=== PATIENT | female | born 1955 | race Asian ===

== ENCOUNTER 2023-02-10 17:01 | Emergency (ER) | payer MEDICAID, OTHER, SELFPAY ==
--- NOTE | ~2023-02-10 | XR_ITS ---
EXAMINATION: XR CHEST CLINICAL INFORMATION: Question right lower lobe pneumonia COMPARISON: None available. TECHNIQUE: Frontal view of the chest was obtained. FINDINGS: Lung volumes are symmetric. There is suggestion of subtle patchy opacity at the lateral left lung base. No evidence of pneumothorax, pleural effusion, or pulmonary edema. Cardiac size is within normal limits. Calcification is present at the aortic arch. No acute osseous findings are seen. XR/XR chest 1V IMPRESSION: Suggestion of subtle patchy left basilar opacity, which could reflect developing consolidation in the proper clinical setting.
--- NOTE | ~2023-02-10 | CT_ITS ---
EXAMINATION: CT ABDOMEN AND PELVIS WITHOUT CONTRAST CLINICAL INFORMATION: Right-sided pain, question etiology COMPARISON: None available. TECHNIQUE: Multidetector volumetric imaging was performed from the superior aspect of the liver through the pubic symphysis. Sagittal and coronal reformatted images were obtained on the technologist's workstation. This CT examination was performed using dose optimization techniques as appropriate, variously including the following: *Automated exposure control *Adjustment of mA and/or kV according to patient size (this includes techniques or standardized protocols for targeted exams where dose is matched to indication/reason for exam; i.e. extremities or head) *Use of iterative reconstruction technique DLP: 274 mGy-cm FINDINGS: LUNG BASES: Limited assessment due to respiratory motion artifact. There are suspected tree-in-bud type opacities predominantly in the left lower lobe, favoring an infectious/inflammatory etiology. LIVER, GALLBLADDER, AND BILIARY TREE: The liver is normal in size, shape, and attenuation. No focal hepatic lesion or biliary ductal dilatation is identified on this noncontrast exam. Gallbladder is grossly unremarkable. PANCREAS: Unremarkable. SPLEEN: Unremarkable. ADRENAL GLANDS: Unremarkable. KIDNEYS AND URETERS: The kidneys are normal in size, shape, and attenuation. No hydronephrosis, hydroureter, or calculi seen. No perinephric stranding. BLADDER: Unremarkable. GASTROINTESTINAL TRACT: No evidence of bowel obstruction or significant wall thickening. The appendix is unremarkable. No free fluid or free air is seen. ABDOMINAL WALL: No significant hernia is appreciated. LYMPH NODES: Normal. VASCULAR: Scattered atherosclerotic calcifications. PELVIC VISCERA: Unremarkable. OSSEOUS STRUCTURES: Chronic-appearing changes of the anterior aspect of the L5 vertebral body including spurring. CT/CT abdomen pelvis wo IV con IMPRESSION: 1. No acute findings identified in the abdomen/pelvis. 2. Suspected tree-in-bud type opacities predominantly in the left lower lobe, favoring an infectious/inflammatory etiology.
[2023-02-10 17:06] VITALS: BP 157/84; PULSE 82; RESP 16; TEMP 36.8; O2SAT 99; BMI 20.4
[2023-02-10 17:23] LABS: MANUAL DIFF FLAG NO
[2023-02-10 17:25] LABS: Basophils Percent Auto 0.5 % (0-2); Eosinophils Absolute Auto 0.1 X10*3/uL (0.0-0.4); Eosinophils Percent Auto 1.1 % (0-4); Hematocrit 40.6 % (37.0-47.0); Hemoglobin 13.5 g/dl (12.0-16.0); Imm Gran Abs Auto 0.01 X10*3/uL (0.00-0.03); Imm Gran Pct Auto 0.2 % (0.0-0.4); Lymphocytes Absolute Auto 2.4 X10*3/uL (1.2-4.9); Lymphocytes Percent Auto 35.9 % (20-40); Mean Corpuscular HGB Conc 33.3 g/dl (31.0-35.0); Mean Corpuscular Hemoglobin 29.6 pg (27.0-33.0); Mean Platelet Volume 9.8 fL (9.4-12.3); Monocytes Absolute Auto 0.5 X10*3/uL (0.1-1.2); Monocytes Percent Auto 7.7 % (2-11); Neutrophils Absolute Auto 3.6 x10*3/uL (2.0-8.3); Neutrophils Percent Auto 54.6 % (45-73); Platelet Count 238 X10*3/uL (160-400); Red Blood Count 4.56 X10*6/uL (4.20-5.50); White Blood Count 6.6 X10*3/uL (4.8-10.8)
[2023-02-10 17:36] VITALS: BP 153/77; PULSE 70; RESP 17; TEMP 36.7; O2SAT 99
[2023-02-10 17:49] LABS: COVID-19 Test Negative (Negative); IDNOW Serial# 08D9AD1C; IDNOW Serial# BCCEAD1C; Influenza A Negative (Negative); Influenza B2 Negative (Negative)
[2023-02-10 17:54] LABS: Alanine Aminotransferase 15 U/L (0-31); Albumin Level 4.3 g/dL (3.5-5.0); Alkaline Phosphatase 99 U/L (39-117); Anion Gap 12 (12-20); Aspartate Amino Transferase 28 U/L (5-31); Bilirubin Total 0.5 mg/dL (0.0-1.0); Blood Urea Nitrogen 8 mg/dL (9-16); Calcium 9.7 mg/dL (8.4-10.2); Carbon Dioxide 28 mmol/L (22-29); Chloride 104 mmol/L (96-108); Creatinine Clr Calc Pharmacy 53.9; Estimated Glomerular Filt Rate > 60; Glucose Random 95 mg/dL (60-115); Potassium 3.7 mmol/L (3.3-5.1); Sodium 140 mmol/L (135-145); Total Protein 8.1 g/dL (6.5-8.0)
[2023-02-10 18:01] LABS: Appearance Urine Clear; Color Urine Yellow; Glucose Urine UA Negative (Negative); Leukocyte Esterase Urine Negative (Negative); Nitrite Urine Negative (Negative); PH 7.5 (5.0-9.0); Urine Blood Negative (Negative); Urine Ketones Negative (Negative); Urine Protein Negative (Neg-Trace)
--- NOTE | 2023-02-10 18:26 | PC.NURSE ---
pt zambian speaking. AOx3, reporting bloating and chills x1 week. reports URQ abd pain. awaiting CR scan.
--- NOTE | 2023-02-10 18:49 | ED.GENADULT ---
HPI - General Adult General Chief complaint: General Medical Stated complaint: feels chilly, stomach flu Time Seen by Provider: 02/10/23 17:29 Source: patient and family Mode of arrival: ambulatory Limitations: language barrier History of Present Illness HPI narrative: Patient taiwanese speaking per family having chills for last 1 week and pain in the right side of abdomen no nausea no vomiting no diarrhea no fever patient been eating okay otherwise Related Data Allergies Allergy/AdvReac Type Severity Reaction Status Date / Time No Known Allergies Allergy Verified 02/10/23 17:05 Review of Systems Review of Systems: Yes all other systems are reviewed and are negative [facility] Social History Social History Alcohol intake: never Smoked in Last 30 Days: No Use of substances other than those prescribed or required for medical reasons: No Advance Directives: No Advance Directives Information Provided: No Physical Exam ED Vital Signs: Vital Signs - 24 hr 02/10/23 17:06 02/10/23 17:36 02/10/23 19:48 Temperature 98.2 F 98.0 F 97.8 F Pulse Rate 82 70 69 Respiratory Rate 16 17 16 Blood Pressure 157/84 H 153/77 H 142/76 H Pulse Oximetry 99 99 98 Oxygen Delivery Method Room Air Room Air Room Air 02/10/23 21:56 Temperature 97.8 F Pulse Rate 77 Respiratory Rate 16 Blood Pressure 116/65 Pulse Oximetry 97 Oxygen Delivery Method Room Air BMI result Body Mass Index 20.4 Appearance: Alert. Oriented X3. No acute distress. Eyes: PERRLA, No Nystagmus ENT: Pharynx normal. Oral Mucosa moist Neck: Normal inspection. Neck supple. CVS: Normal heart rate and rhythm. Pulses normal. Respiratory: No respiratory distress. Equal air entry bilateral, no wheezing/rales/rhonchi Abdomen: Soft mild tenderness right upper quadrant no rebound tenderness or guarding Bowel sounds are present, no mass palpable, no CVA tenderness Skin: Skin warm and dry. Normal skin color. Normal skin turgor. Extremities: No lower extremity edema. No calf tenderness Neuro: Oriented X 3. No motor deficit. Medical Decision Making Medical Decision Making MDM Narrative: Patient nonspecific chills and nonspecific right abdominal pain CT scan is negative chest x-ray negative labs are stable discharge patient home on nonspecific abdominal pain patient denies cough or shortness of breath no signs symptoms of pneumonia likely atelectasis in the x-ray and CT scan finding Lab Data MDM Lab Attestation statement: I reviewed the patient's lab results. 02/10/23 17:15 02/10/23 17:15 Labs: Lab Results 02/10/23 02/10/23 02/10/23 Range/Units 17:15 17:15 17:15 WBC 6.6 (4.8-10.8) X10*3/uL RBC 4.56 (4.20-5.50) X10*6/uL Hgb 13.5 (12.0-16.0) g/dl Hct 40.6 (37.0-47.0) % MCV 89.0 (80.0-98.0) fL MCH 29.6 (27.0-33.0) pg MCHC 33.3 (31.0-35.0) g/dl RDW 12.0 (11.0-16.0) % Plt Count 238 (160-400) X10*3/uL MPV 9.8 (9.4-12.3) fL Immature Gran % (Auto) 0.2 (0.0-0.4) % Neut % (Auto) 54.6 (45-73) % Lymph % (Auto) 35.9 (20-40) % [place] % (Auto) 7.7 (2-11) % Eos % (Auto) 1.1 (0-4) % Baso % (Auto) 0.5 (0-2) % Lymph # (Auto) 2.4 (1.2-4.9) X10*3/uL [place] # (Auto) 0.5 (0.1-1.2) X10*3/uL Eos # (Auto) 0.1 (0.0-0.4) X10*3/uL Baso # (Auto) 0.0 (0.0-0.2) X10*3/uL Abs Immat Gran (auto) 0.01 (0.00-0.03) X10*3/uL Absolute Neuts (auto) 3.6 (2.0-8.3) x10*3/uL Absolute Nucleated RBC 0.000 (0.0-0.012) X10*3/uL Nucleated RBC % (auto) 0.0 (0.0-0.2) /100WBC Sodium (135-145) mmol/L Potassium (3.3-5.1) mmol/L Chloride (96-108) mmol/L Carbon Dioxide (22-29) mmol/L Anion Gap (12-20) BUN (9-16) mg/dL Creatinine (0.5-1.4) mg/dL Estim Creat Clear Calc Estimated GFR Random Glucose (60-115) mg/dL Calcium (8.4-10.2) mg/dL Total Bilirubin (0.0-1.0) mg/dL AST (5-31) U/L ALT (0-31) U/L Alkaline Phosphatase (39-117) U/L Total Protein (6.5-8.0) g/dL Albumin (3.5-5.0) g/dL Urine Color Urine Appearance Urine pH (5.0-9.0) Ur Specific [place] (1.005-1.025) Urine Protein (Neg-Trace) mg/dL Urine Glucose (UA) (Negative) mg/dL Urine Ketones (Negative) mg/dL Urine Blood (Negative) Urine Nitrite (Negative) Ur Leukocyte Esterase (Negative) COVID-19 (LUANA) Negative (Negative) COVID-19 Clin Com See Note Influenza Type A (DANIKA) Negative (Negative) Influenza Type B (DANIKA) Negative (Negative) Influenza A & B Note See Note 02/10/23 02/10/23 Range/Units 17:15 17:48 WBC (4.8-10.8) X10*3/uL RBC (4.20-5.50) X10*6/uL Hgb (12.0-16.0) g/dl Hct (37.0-47.0) % MCV (80.0-98.0) fL MCH (27.0-33.0) pg MCHC (31.0-35.0) g/dl RDW (11.0-16.0) % Plt Count (160-400) X10*3/uL MPV (9.4-12.3) fL Immature Gran % (Auto) (0.0-0.4) % Neut % (Auto) (45-73) % Lymph % (Auto) (20-40) % [place] % (Auto) (2-11) % Eos % (Auto) (0-4) % Baso % (Auto) (0-2) % Lymph # (Auto) (1.2-4.9) X10*3/uL [place] # (Auto) (0.1-1.2) X10*3/uL Eos # (Auto) (0.0-0.4) X10*3/uL Baso # (Auto) (0.0-0.2) X10*3/uL Abs Immat Gran (auto) (0.00-0.03) X10*3/uL Absolute Neuts (auto) (2.0-8.3) x10*3/uL Absolute Nucleated RBC (0.0-0.012) X10*3/uL Nucleated RBC % (auto) (0.0-0.2) /100WBC Sodium 140 (135-145) mmol/L Potassium 3.7 (3.3-5.1) mmol/L Chloride 104 (96-108) mmol/L Carbon Dioxide 28 (22-29) mmol/L Anion Gap 12 (12-20) BUN 8 L (9-16) mg/dL Creatinine 0.69 (0.5-1.4) mg/dL Estim Creat Clear Calc 53.9 Estimated GFR > 60 Random Glucose 95 (60-115) mg/dL Calcium 9.7 (8.4-10.2) mg/dL Total Bilirubin 0.5 (0.0-1.0) mg/dL AST 28 (5-31) U/L ALT 15 (0-31) U/L Alkaline Phosphatase 99 (39-117) U/L Total Protein 8.1 H (6.5-8.0) g/dL Albumin 4.3 (3.5-5.0) g/dL Urine Color Yellow Urine Appearance Clear Urine pH 7.5 (5.0-9.0) Ur Specific [place] 1.010 (1.005-1.025) Urine Protein Negative (Neg-Trace) mg/dL Urine Glucose (UA) Negative (Negative) mg/dL Urine Ketones Negative (Negative) mg/dL Urine Blood Negative (Negative) Urine Nitrite Negative (Negative) Ur Leukocyte Esterase Negative (Negative) COVID-19 (LUANA) (Negative) COVID-19 Clin Com Influenza Type A (DANIKA) (Negative) Influenza Type B (DANIKA) (Negative) Influenza A & B Note Discharge Plan Discharge Clinical Impression: Abdominal pain Patient Disposition: Home, Self-Care Instructions: Abdominal Pain (ED) Additional Instructions: Drink plenty of fluids Cause of your abdominal pain is not very clear Follow-up with PCP for further evaluate Interventions: ED Discharge Assessment Last Done: 02/10/23 22:40 Discharge Date/Time: 02/10/23 22:40
[2023-02-10 19:48] VITALS: BP 142/76; PULSE 69; RESP 16; TEMP 36.6; O2SAT 98
[2023-02-10 21:56] VITALS: BP 116/65; PULSE 77; RESP 16; TEMP 36.6; O2SAT 97
== END 2023-02-10 22:40 | disposition home or self-care (01) ==
PROVIDERS: Emergency Provider Internal Medicine
DX: R10.31 Right lower quadrant pain (principal); R06.02 Shortness of breath; Z20.822 Contact with and (suspected) exposure to COVID-19; Z20.828 Contact with and (suspected) exposure to other viral communicable diseases; Z79.899 Other long term (current) drug therapy
CPT/HCPCS: 36415; 71045; 74176; 80053; 81003; 85025; 87502; 87635; 99284

== ENCOUNTER 2023-10-11 09:52 | Outpatient (AMB) | payer MEDICAID, SELFPAY ==
--- NOTE | 2023-10-11 09:57 | A.OFFPC_ITS ---
Vital Signs 10/11/23 10:00 Height 4 ft 11 in Weight 98 lb 8 oz BMI 19.9 BP 100/64 Blood Pressure Location Lt brachial Position Sitting Pulse 66 Pulse Source Pulse Oximeter Pulse Oximetry (%) 100 Oxygen Delivery Method Room Air Intake Visit Reasons: Buttoner Request PE Intake Note: Patient is a new patient here to establish care for Back pain, Stomach pain on the right side, Constipation. Transferring care from unknown. Medical records have not been requested and have not received. Environmental Programs Specialist Required: Yes Environmental Programs Specialist Language: Cymro Environmental Programs Specialist Name: Donald Baugh (Brother cassandra) Information Interpreted: non-clinical & clinical Supervisor Propellant Charge Loading: Present Accompanied by: Family/Other Allergies No Known Allergies Allergy (Verified 10/11/23 10:43) Medication List - Last Reconciled 10/11/23 by Coleman Ornelas MD No Known Home Meds Tobacco use date assessed: 10/11/23 Fall risk assessment: 1 Fall in past year Last assessed Fall Risk: 10/11/23 Dental Screening Dental Screen Date: 10/11/23 Did you have a dental visit in the last 12 months?: No Did you have a dental problem in the last 6 months where you did not have access to dental care?: No Was dental information given to patient?: No (denture) HPI Buttoner Request PE HPI Details Patient comes in today for her annual physical examination and to establish care - is a new patient to the practice Patient reportedly just came over/m[place] [facility] here to [facility] last year in November 2022 and has not seen any doctors [place] in the [place] so far Relates that she's had problems with stomach pain for years (thinks that she may have acid problems ) and was taking an unrecalled medication for her stomach while she was still living in [facility] but has not had any Rx to take since she moved here last year Also reports that she's had issues with constipation often in the past Patient has also been experiencing increased pain over her neck and her entire back area for a few years now but states that she has never had these checked out before and feels that her neck pain and back pain have gradually gotten worse over the years Her daughter has recently noticed that her lumbar vertebrae seems to be sticking out more than normal lately States that she otherwise has not had any significant medical issues and has never had any surgeries done in the past She denies any headaches or dizziness Denies any chest pains, no SOB No nausea/vomiting and she denies any acute urinary symptoms She is also unaware that she's had any form of cancer screenings done in the past, including colonoscopy, mammogram or pap smears [facility] Medical History (Updated 10/11/23 @ 12:49 by Coleman Ornelas MD) Gastritis Surgical History No pertinent past surgical history Social History Housing: House Alcohol intake: never Patient Tobacco Use Status: Never used Tobacco e-Cigarette/Vaping Use: Never Used Second Hand Smoke Exposure: No service: No Current occupational status: retired Cognitive needs: No Hearing needs: No Vision needs: No Questionnaire PHQ-9 Over the last 2 weeks, how often have you been bothered by any of the following problems? 1. Little interest or pleasure in doing things: not at all 2. Feeling down, depressed, or hopeless: not at all 3. Trouble falling or staying asleep, or sleeping too much: not at all 4. Feeling tired or having little energy: not at all 5. Poor appetite or overeating: not at all 6. Feeling bad about yourself - or that you are a failure or have let yourself or your family down: not at all 7. Trouble concentrating on things, such as reading the newspaper or watching television: not at all 8. Moving or speaking so slowly that other people could have noticed. Or the opposite - being so fidgety or restless that you have been moving around a lot more than usual: not at all 9. Thoughts that you would be better off or of hurting yourself in some way: not at all Total score: 0 Depression Screening Interpretation: Negative Depression Screening Done: Yes 43247 - PHQ-9 Billing: Yes Source: Developed by Drs. Thom Collado, Verónica Gaitan, Dat Pham and colleagues, with an educational brian from [employer]. Thrive Questionnaire Date Thrive assessed: 10/11/23 I am a: Patient What is your living situation today?: I have a steady place to live Within the past 12 months, did the food you bought not last and you didn't have the money to get more?: Never true Within the past 12 months, did you worry whether your food would run out before you got money to buy more?: Never true Do you have trouble paying for medicines?: No Do you have trouble getting transportation to medical appointments?: No Do you have trouble paying your heating and electricity bill?: No Do you have trouble taking care of your child, family member or friend?: No Do you have trouble with day-to-day activities such as bathing, preparing meals, shopping, managing finances, etc.?: No Are you currently unemployed and looking for a job?: No Are you interested in more education?: No Currently or been in a relationship where the following occur: no concerns reported THRIVE Score: 0 AUDIT C Alcohol Use Questionnaire (AUDIT-C) 1. How often do you have a drink containing alcohol?: Never Total Score: 0 Score Reviewed/Action Taken: Yes SUNNY-7 AMB Questionnaire SUNNY-7 Date SUNNY - 7 assessed: 10/11/23 Feeling nervous, anxious, or on edge: 0 = Not at all Not being able to stop or control worryin = Not at all Worrying too much about different things: 0 = Not at all Trouble relaxin = Not at all Being so restless that it is hard to sit still: 0 = Not at all Becoming easily annoyed or irritable: 0 = Not at all Feeling afraid as if something awful might happen: 0 = Not at all Total SUNNY-7 score (0-4 normal; 5-9 mild; 10-14 moderate; 15-21 severe): 0 Source: Developed by Drs. Thom Collado, Verónica Gaitan, Dat Pham and colleagues, with an educational brian from [employer]. Review of Systems Const Denies chills, Denies difficulty sleeping, Denies fatigue, Denies fever(s), Denies headache(s) and Denies malaise Eyes Denies blurry vision, Denies change in vision, Denies irritation and Denies itchy eyes ENT Denies dysphagia, Denies dizziness, Denies otalgia, Denies headache(s), Denies nasal congestion, Reports neck pain, Denies odynophagia, Denies sinus pain and Denies sore throat Card Denies chest pain, Denies rapid heart rate, Denies irregular heart rhythm, Denies palpitations and Denies dyspnea Resp Denies chest congestion, Denies cough, Denies dyspnea and Denies wheezing GI Reports abdominal pain (recurrent, mostly over the epigastric area), Denies bloating, Reports constipation, Denies dysphagia, Denies heartburn, Denies diarrhea, Denies nausea, Denies odynophagia and Denies vomiting Denies hematuria, Denies urinary frequency, Denies dysuria, Denies urinary incontinence and Denies urinary urgency Musc Reports back pain (over the entire back), Denies arthralgias, Denies joint swelling, Denies muscle weakness and Reports neck pain Skin/Breast Denies breast pain, Denies breast mass, Denies change in pigmentation, Denies lesions, Denies rash and Denies unusual bruising Neuro Denies dizziness, Denies headache(s) and Denies paresthesias Psych Denies anxiety and Denies depression Endo Denies fatigue and Denies palpitations Dirk/Lymph Denies easy bruising Aller/Immun Denies itchy eyes and Denies wheezing Physical exam (Primary Care) Vital Signs: Last Vital Signs Pulse 66 10/11/23 10:00 BP 100/64 10/11/23 10:00 Pulse Ox 100 10/11/23 10:00 Oxygen Delivery Method Room Air 10/11/23 10:00 BMI result Body Mass Index 19.9 Tobacco/Smoking Status: Tobacco use Status Tobacco use date assessed 10/11/23 10/11/23 10:13 Patient Tobacco Use Status Never used Tobacco 10/11/23 10:13 e-Cigarette/Vaping Use Never Used 10/11/23 10:13 PHQ-9: PHQ-9 Score PHQ-9: Total score 0 10/11/23 10:13 Depression Screening Interpretation: Negative Thrive Assessment: Date of Thrive Assessment Date Thrive assessed 10/11/23 10/11/23 10:13 Currently or been in a relationship where the following occur: no concerns reported Const General: no acute distress, alert and awake Orientation/consciousness: patient oriented x3 HENMT Head: Yes normocephalic and Yes atraumatic Ears: external ears normal, TM's normal bilaterally and EAC's normal General nose exam: No nasal discharge present Face and sinus: Yes normal facial exam and Yes sinuses nontender Teeth and gingiva: dentition normal Throat: Yes posterior oropharynx normal and Yes tonsils normal (no TP congestion) Eyes Eyelids: Yes eyelids normal Conjunctivae: conjunctivae normal Pupils: Equal, round and reactive pupils present EOM: EOMs intact bilaterally Neck Neck: Yes no lymphadenopathy and Yes supple Thyroid: Thyroid normal Resp Auscultation: clear to auscultation bilaterally, no rales and no wheezes Cardio Rate: regular rate Rhythm: regular rhythm Heart sounds: no murmurs GI Palpation (GI): Soft to palpation, Tenderness to palpation present (GI) (mild) in the epigastrum; with no rebound tenderness, no guarding, not rigid and No hepatosplenomegaly present Auscultation: normal bowel sounds General: Yes no CVA tenderness Back/Spine/Pelvis Back: no CVA tenderness Cervical Spine: Cervical spine tenderness Thoracic/Lumbar Spine: thoracic spinal tenderness and lumbar spinal tenderness Skin Lesions: no lesions Rashes: no rashes Neuro General: patient oriented x3, moves all extremities, no focal motor deficits and CN's II-XI intact bilaterally Cranial nerves: Yes Equal, round and reactive pupils present Cognition (Neuro): normal cognition Gait exam (Neuro): Normal gait present Extrem General: Yes no clubbing, cyanosis or edema Assessment and Plan Assessment & Plan (1) Annual physical exam: Code(s): Z00.00 - Encounter for general adult medical examination without abnormal findings Plan: Check labs Patient is unaware that she's had any cancer screenings done in the past when she was still [place] [facility] - just relocated here to [facility] last year in November 2022 as her daughter resides here with her and had her mother come over so she can be cared for by family at home Will refer her for a screening mammogram as well as initial BMD for osteoporosis screening (2) Gastritis: Code(s): K29.70 - Gastritis, unspecified, without bleeding Qualifiers: Gastritis type: unspecified gastritis Chronicity: chronic Gastritis bleeding: without bleeding Qualified Code(s): K29.50 - Unspecified chronic gastritis without bleeding Plan: Discussed dietary restrictions Will send her for an upper GI series for further evaluation Will start her for now on Omeprazole 20 mg QD and Famotidine 20 mg Q HS x 14 days Will refer her as well to GI for further evaluation and management as patient may require EGD if her symptoms do not improve with Tx and depending on how her upper GI series comes out (3) Neck pain: Code(s): M54.2 - Cervicalgia Plan: Will send patient for cervical spine x-rays for further evaluation (4) Thoracic back pain: Code(s): M54.6 - Pain in thoracic spine Qualifiers: Chronicity: unspecified Back pain laterality: midline Qualified Code(s): M54.6 - Pain in thoracic spine Plan: Will send patient for x-rays of the thoracic spine for further evaluation (5) Low back pain: Code(s): M54.50 - Low back pain, unspecified Qualifiers: Chronicity: chronic Back pain laterality: midline Sciatica presence: without sciatica Qualified Code(s): M54.50 - Low back pain, unspecified; G89.29 - Other chronic pain Plan: Discussed activity and weight-lifting restrictions to avoid aggravating her back pain Will send patient as well for lumbar spine x-rays for further evaluation (6) Colon cancer screening: Code(s): Z12.11 - Encounter for screening for malignant neoplasm of colon Plan: Will refer her to GI for screening colonoscopy - patient apparently has never had one done in the past (7) Osteoporosis screening: Code(s): Z13.820 - Encounter for screening for osteoporosis Plan: Will send her for BMD for osteoporosis screening - this will be likely her index screen Plan Follow up in 3 months Orders: Orders FL upper GI series Today R10.13 - Epigastric pain MM tomosynthesis screening BI Today Z12.31 - Encounter for screening mammogram for malignant neoplasm of breast XR cervical spine 3V Today M54.2 - Cervicalgia XR lumbar spine 2-3V Today M54.50 - Low back pain, unspecified TSH reflex Free T4 Today E78.00 - Pure hypercholesterolemia, unspecified, Z00.00 - Encounter for general adult medical examination without abnormal findings XR DEXA axial skeleton Today Z13.820 - Encounter for screening for osteoporosis, Z78.0 - Asymptomatic menopausal state XR thoracic spine 3V Today M54.6 - Pain in thoracic spine Complete Blood Count Auto Diff Today K29.70 - Gastritis, unspecified, without bleeding, Z00.00 - Encounter for general adult medical examination without abnormal findings Comprehensive [place]. Panel Fast Today K29.70 - Gastritis, unspecified, without bleeding, Z00.00 - Encounter for general adult medical examination without abnormal findings Lipid Panel Today E78.00 - Pure hypercholesterolemia, unspecified, Z00.00 - Encounter for general adult medical examination without abnormal findings UA CC w/rflx Micro + Cult Today R30.0 - Dysuria, Z00.00 - Encounter for general adult medical examination without abnormal findings Vitamin D 25-OH Total Today E55.9 - Vitamin D deficiency, unspecified, Z00.00 - Encounter for general adult medical examination without abnormal findings Vitamin B12 and Folate Today E53.8 - Deficiency of other specified B group vitamins, Z00.00 - Encounter for general adult medical examination without abnormal findings C Reactive Protein Today M54.2 - Cervicalgia, M54.50 - Low back pain, unspecified Erythrocyte Sedimentation Rate Today M54.2 - Cervicalgia, M54.50 - Low back pain, unspecified, M79.7 - Fibromyalgia Referrals Gastroenterology Referral K29.70 - Gastritis, unspecified, without bleeding, R10.9 - Unspecified abdominal pain, Z12.11 - Encounter for screening for malignant neoplasm of colon Medications: New omeprazole 20 mg PO DAILY 90 days 90 caps 1RF famotidine 20 mg PO BEDTIME 14 days 14 tabs 0RF Coding Level of Care Code New Pt Prev Care >65yr (12894) Diagnoses Annual physical exam Z00.00 Chronic gastritis without bleeding, unspecified gastritis type K29.50 Gastritis type: unspecified gastritis Chronicity: chronic Gastritis bleeding: without bleeding Neck pain M54.2 Midline thoracic back pain, unspecified chronicity M54.6 Chronicity: unspecified Back pain laterality: midline Chronic midline low back pain without sciatica M54.50; G89.29 Chronicity: chronic Back pain laterality: midline Sciatica presence: without sciatica Colon cancer screening Z12.11 Osteoporosis screening Z13.820
[2023-10-11 10:00] VITALS: BP 100/64; PULSE 66; O2SAT 100; BMI 19.9
== END 2023-10-11 11:02 | disposition home or self-care (01) ==
PROVIDERS: PCP Internal Medicine; Visit Provider Internal Medicine
DX: Z00.00 Encounter for general adult medical examination without abnormal findings (principal); K29.50 Unspecified chronic gastritis without bleeding; M54.2 Cervicalgia; M54.6 Pain in thoracic spine; M54.50 Low back pain, unspecified; G89.29 Other chronic pain; Z12.11 Encounter for screening for malignant neoplasm of colon; Z13.820 Encounter for screening for osteoporosis
CPT/HCPCS: 99387

== ENCOUNTER 2023-10-12 08:25 | Outpatient (REF) | payer MEDICAID, OTHER, SELFPAY ==
--- NOTE | ~2023-10-12 | XR_ITS ---
EXAMINATION: XR CERVICAL SPINE CLINICAL INFORMATION: Cervicalgia COMPARISON: None available. TECHNIQUE: 3 views of the cervical spine were obtained. FINDINGS: The tip of the odontoid is obscured on the open-mouth view. The bones are diffusely demineralized. No fracture or subluxation. Prevertebral soft tissues are within normal limits. No disc space narrowing. Mild cervical lordosis. XR/XR cervical spine 3V IMPRESSION: 1. The bones are diffusely demineralized. 2. No acute bony abnormality.
--- NOTE | ~2023-10-12 | XR_ITS ---
EXAMINATION: XR THORACIC SPINE CLINICAL INFORMATION: Pain in thoracic spine COMPARISON: None available. TECHNIQUE: 3 views of the thoracic spine were obtained. FINDINGS: The bones are diffusely demineralized. There is no fracture or bone destruction seen. There is curve of the thoracic spine, convex left. There is no disc space narrowing. There is no abnormality of the paraspinal soft tissues. XR/XR thoracic spine 3V IMPRESSION: Curvature of the thoracic spine, convex left.
--- NOTE | ~2023-10-12 | XR_ITS ---
EXAMINATION: XR LUMBOSACRAL SPINE CLINICAL INFORMATION: Low back pain, unspecified COMPARISON: None available. TECHNIQUE: Three standing views of the lumbosacral spine. FINDINGS: The bones are diffusely demineralized. Round back posture is noted with straightening of the normal lumbar lordosis. There are 5 nonrib-bearing lumbar-type vertebral bodies There is mild loss of height of the L5 vertebral body. No disc space narrowing is appreciated. There is mild retrolisthesis of L4 with respect to L5. Question of fusion of the L5 facet to the sacrum. XR/XR lumbar spine 2-3V IMPRESSION: 1. Mild loss of height of the L5 vertebral body. 2. Mild retrolisthesis of L4 with respect to L5. 3. Question of fusion of the L5 facet to the sacrum.
[2023-10-12 08:52] LABS: MANUAL DIFF FLAG NO
[2023-10-12 09:05] LABS: Basophils Percent Auto 0.8 % (0-2); Eosinophils Absolute Auto 0.2 X10*3/uL (0.0-0.4); Eosinophils Percent Auto 4.1 % (0-4); Hematocrit 38.9 % (37.0-47.0); Hemoglobin 12.8 g/dl (12.0-16.0); Imm Gran Abs Auto 0.01 X10*3/uL (0.00-0.03); Imm Gran Pct Auto 0.2 % (0.0-0.4); Lymphocytes Absolute Auto 2.4 X10*3/uL (1.2-4.9); Lymphocytes Percent Auto 48.5 % (20-40); Mean Corpuscular HGB Conc 32.9 g/dl (31.0-35.0); Mean Corpuscular Hemoglobin 29.4 pg (27.0-33.0); Mean Corpuscular Volume 89.4 fL (80.0-98.0); Mean Platelet Volume 10.4 fL (9.4-12.3); Monocytes Absolute Auto 0.4 X10*3/uL (0.1-1.2); Monocytes Percent Auto 8.7 % (2-11); Neutrophils Absolute Auto 1.8 x10*3/uL (2.0-8.3); Neutrophils Percent Auto 37.7 % (45-73); Platelet Count 254 X10*3/uL (160-400); Red Blood Count 4.35 X10*6/uL (4.20-5.50); Red Cell Distribution Width 11.7 % (11.0-16.0); White Blood Count 4.9 X10*3/uL (4.8-10.8)
[2023-10-12 09:39] LABS: Erythrocyte Sedimentation Rate 74 MM/HR (0-20)
[2023-10-12 09:42] LABS: Alanine Aminotransferase 14 U/L (0-31); Albumin Level 4.2 g/dL (3.5-5.0); Alkaline Phosphatase 113 U/L (39-117); Anion Gap 11 (12-20); Aspartate Amino Transferase 27 U/L (5-31); Bilirubin Total 0.3 mg/dL (0.0-1.0); Blood Urea Nitrogen 14 mg/dL (9-16); C Reactive Protein 0.36 mg/dL (< or = 0.50); Calcium 9.7 mg/dL (8.4-10.2); Carbon Dioxide 26 mmol/L (22-29); Chloride 107 mmol/L (96-108); Cholesterol 201 mg/dL (<200); Estimated Glomerular Filt Rate > 60; Glucose Fasting 93 mg/dL (60-99); HDL Cholesterol 44 mg/dL (>40); LDL Cholesterol Calculated 141 mg/dL (<100); Potassium 4.1 mmol/L (3.3-5.1); Sodium 140 mmol/L (135-145); Total Protein 8.7 g/dL (6.5-8.0); Triglycerides 81 mg/dL (<150)
[2023-10-12 10:02] LABS: TSH reflex Free T4 2.02 uIU/mL (0.32-4.0); Vitamin D 25-OH Total 42.4 ng/mL (>30)
[2023-10-12 10:07] LABS: Folate 4.4 ng/mL (> or = 4.0); Vitamin B12 1479 pg/mL (200-900)
[2023-10-12 10:21] LABS: Appearance Urine Clear; Color Urine Yellow; Glucose Urine UA Negative (Negative); Leukocyte Esterase Urine Small (1+) (Negative); Nitrite Urine Negative (Negative); UMIC TRIGGER UACC YES; Urine Blood Negative (Negative); Urine Ketones Negative (Negative); Urine Protein Negative (Neg-Trace)
[2023-10-12 10:24] LABS: Bacteria Urine 1+ (None Seen); RBC Urine 0-2 /HPF (0-2); Squamous Epithelial Cell Urine 0-2 /HPF (0-2); UACC Culture Trigger YES
== END 2023-10-12 08:26 | disposition home or self-care (01) ==
LOC: HO.LAB 08:25
PROVIDERS: PCP Internal Medicine; Visit Provider Internal Medicine
DX: M54.50 Low back pain, unspecified (principal); M54.2 Cervicalgia; M54.6 Pain in thoracic spine; K29.70 Gastritis, unspecified, without bleeding; Z00.00 Encounter for general adult medical examination without abnormal findings; M79.7 Fibromyalgia; E78.00 Pure hypercholesterolemia, unspecified; R30.0 Dysuria; E53.8 Deficiency of other specified B group vitamins; E55.9 Vitamin D deficiency, unspecified
CPT/HCPCS: 36415; 72040; 72072; 72100; 80053; 80061; 81001; 82306; 82607; 82746; 84443; 85025; 85652; 86140; 87086

== ENCOUNTER 2023-11-15 13:31 | Outpatient (REF) | payer MEDICAID, OTHER, SELFPAY ==
--- NOTE | ~2023-11-15 | MM_ITS ---
EXAMINATION: MM SCREENING DIGITAL BREAST TOMOSYNTHESIS, BILATERAL CLINICAL INFORMATION: Screening. Asymptomatic. COMPARISON: Mammography: This is a baseline mammogram. TECHNIQUE: Digital breast tomosynthesis is performed in both the craniocaudal and mediolateral oblique views along with computer-aided detection (CAD). Synthesized 2D images are generated from the tomosynthesis. FINDINGS: There are scattered areas of fibroglandular density (ACR BI-RADS breast composition Category b). There are no significant masses, abnormal calcifications, or other abnormalities. MM/MM tomosynthesis screening BI IMPRESSION: No mammographic evidence of malignancy. ASSESSMENT: BI-RADS BI-RADS 1 - Negative RECOMMENDATION: Routine annual mammography screening. 1 year F/U This examination should not preclude the clinical evaluation of a suspicious palpable abnormality. This patient's information was entered into a reminder system with a target due date for their next mammogram.
--- NOTE | ~2023-11-15 | MM_ITS ---
EXAMINATION: BONE DENSITOMETRY CLINICAL INDICATION: Menopause. COMPARISON: This is the patient's baseline examination. TECHNIQUE: Using a [employer]ktoPRO DXA System (software version: 13.1) manufactured by [employer], dual-energy x-ray absorptiometry was performed of the lumbar spine and left hip. The images are of good technical quality. Summary results are attached. FINDINGS: LEFT FEMUR, NECK: BMD 0.508 g/cm2, Z-score -1.9, T-score -3.8, osteoporosis. LEFT FEMUR, TOTAL: BMD 0.513 g/cm2, Z-score -2.2, T-score -3.9, osteoporosis. AP SPINE L1-L4: BMD 0.580 g/cm2, Z-score -2.8, T-score -5.0, osteoporosis. IDENTIFIED RISK FACTORS: Early menopause, history of fracture (adult), secondary osteoporosis. HISTORY OF FRACTURE: Wrist. MEDICATIONS: Calcium, vitamin D. MM/XR DEXA axial skeleton IMPRESSION: 1. DIAGNOSIS: Severe osteoporosis based on the lowest T-score value of -5.0 in the lumbar spine and history of fracture of wrist applying World Health Organization criteria. 2. 10-YEAR FRACTURE RISK PREDICTION, FRAX: According to the guidelines, FRAX calculation should only be performed on patients in the osteopenia bone density category. Therefore, FRAX was not performed on this patient. 3. Treatment Recommendations: NOF guidelines recommend consideration for treatment in postmenopausal women and men age 50 and older presenting with the following: -A hip or vertebral (clinical or morphometric) fracture. -T-score less than or equal to -2.5 at the femoral neck or spine after appropriate evaluation to exclude secondary causes. -Low bone mass at the hip or spine and a 10-year fracture probability by FRAX of greater than or equal to 3% for hip fracture or greater than or equal to 20% for major osteoporotic fracture based on the [place] adapted WHO algorithm. 4. Other Recommendations: All treatment decisions require clinical judgment and consideration of individual patient factors, including patient preferences, comorbidities, previous drug use, risk factors not captured in the FRAX model (e.g. frailty, falls, vitamin D deficiency, increased bone turnover, interval significant decline in bone density) and possible under or overestimation of fracture risk by FRAX. Additional medical evaluation for secondary cause of low bone mineral density may be appropriate. FUTURE SCAN RECOMMENDATION: People with diagnosed cases of osteoporosis or at high risk for fracture should have regular bone mineral density tests. For patients eligible for Medicare, routine testing is allowed once every 2 years. The testing frequency can be increased to one year for patients who have rapidly progressing disease, those who are receiving or discontinuing medical therapy to restore bone mass, or have additional risk factors.
== END 2023-11-15 13:32 | disposition home or self-care (01) ==
LOC: HO.MAMMO 13:31
PROVIDERS: PCP Internal Medicine; Visit Provider Internal Medicine
DX: Z12.31 Encounter for screening mammogram for malignant neoplasm of breast (principal); Z13.820 Encounter for screening for osteoporosis; Z78.0 Asymptomatic menopausal state
CPT/HCPCS: 77063; 77067; 77080

== ENCOUNTER → 2023-11-15 14:00 | Outpatient (BNV) | payer MEDICAID, SELFPAY | PROVIDERS: PCP Internal Medicine; Visit Provider Radiology Diagnostic Radiology | DX: Z12.31 Encounter for screening mammogram for malignant neoplasm of breast (principal) | CPT/HCPCS: 77063; 77067 ==

== ENCOUNTER 2023-12-10 08:32 | Outpatient (REF) | payer MEDICAID, SELFPAY ==
--- NOTE | ~2023-12-10 | FL_ITS ---
EXAMINATION: XR FLUOROSCOPY UPPER GI WITH AIR CLINICAL INFORMATION: Dysphagia. Epigastric pain. Reflux. COMPARISON: None TECHNIQUE: Fluoroscopic air contrast upper GI examination was performed utilizing standard techniques with thin and thick barium and effervescent granules. Numerous spot images were obtained. FINDINGS: Lateral cine images of the oropharynx and hypopharynx demonstrate normal swallow mechanism with normal epiglottic inversion and soft palate elevation. No tracheal penetration, glottic or subglottic aspiration identified. No nasopharyngeal reflux present. Hypopharyngeal structures appear normal without evidence of mass or diverticulum. There was no significant cricopharyngeal achalasia. Dual and single contrast images of the esophagus demonstrate normal caliber and contour. No evidence of stricture or mass. There is a granular appearance to the esophageal mucosa, findings suggesting erosive esophagitis. There is to and fro motion of the barium column with nonpropulsive tertiary contractions noted in the mid and distal esophagus. No evidence of hiatus hernia identified. No significant gastroesophageal reflux was seen during the course of the examination and on reflux views. Dual contrast and single contrast images of the stomach demonstrated a normal contour. The gastric mucosal folds are thickened. There are multiple areas of contrast pooling in the fundus, body, and antrum of the stomach that may represent small superficial apthous ulcers. No masses are seen. Contrast freely passed into the gastric antrum and duodenal bulb without delay. Single and air-contrast images of the duodenal bulb demonstrate no abnormality. The duodenal sweep has a normal appearance, course, and mucosal fold appearance. The imaged proximal jejunum has a normal fold pattern and caliber. FLUOROSCOPY TIME: 5 minutes 27 seconds Number of Spot Images: 21 Number of Cine: 10 DOSE AREA PRODUCT: 1338 uGy-m2 (microgray-meter squared) FL/FL upper GI w air IMPRESSION: 1. Esophageal dysmotility. Possible erosive esophagitis. 2. Thickened gastric mucosal folds in addition to multiple areas of contrast pooling in the fundus, body, and antrum of the stomach. These findings are suggestive of erosive gastritis. Recommend correlation with EGD. This procedure was performed by Jeramy Chow PA-C, and supervised by Dr. Shaw
== END 2023-12-10 08:33 | disposition home or self-care (01) ==
LOC: HO.XRAY 08:32
PROVIDERS: PCP Internal Medicine; Visit Provider Internal Medicine
DX: R10.13 Epigastric pain (principal)
CPT/HCPCS: 74246

== ENCOUNTER → 2023-12-10 08:34 | Outpatient (BNV) | payer MEDICAID, SELFPAY | PROVIDERS: PCP Internal Medicine; Visit Provider Physician Assistant Surgical | DX: R13.10 Dysphagia, unspecified (principal); R10.13 Epigastric pain; K21.9 Gastro-esophageal reflux disease without esophagitis | CPT/HCPCS: 74246 ==

== ENCOUNTER 2024-01-13 12:17 | Outpatient (AMB) | payer MEDICAID, SELFPAY ==
--- NOTE | 2024-01-13 12:35 | A.OFFPC_ITS ---
Vital Signs 01/13/24 12:37 Height 4 ft 11 in Weight 101 lb 6 oz BMI 20.5 BP 110/70 Blood Pressure Location Lt brachial Position Sitting Pulse 59 Pulse Source Pulse Oximeter Pulse Oximetry (%) 99 Oxygen Delivery Method Room Air Intake Visit Reasons: 3 month f/u Intake Note: Patient is here to follow up on Gastritis, Low back pain. Coverstitch Machine Operator Required: Yes Coverstitch Machine Operator Language: Croatian Coverstitch Machine Operator Name: Madeleine (sister) Manager Case Management: Present Accompanied by: Sister Allergies No Known Allergies Allergy (Verified 01/13/24 12:50) Medication List - Last Reconciled 01/13/24 by Coleman Ornelas MD famotidine 20 mg PO BEDTIME 14 days omeprazole 20 mg PO DAILY 90 days Tobacco use date assessed: 01/13/24 Fall risk assessment: No Falls in past year Last assessed Fall Risk: 01/13/24 Dental Screening Dental Screen Date: 10/11/23 HPI 3 month f/u HPI Details Patient comes in today for her follow up visit States that she continues to experience increased pain over her neck and upper back She denies any headaches or dizziness Denies any chest pains, no SOB No nausea/vomiting but she continues to experience recurrent pain over her epigastric area although she states that her symptoms have improved somewhat with her current Rx No change in bowel habits noted Would like to know how her labs and x-rays done back in September 2023 as well as her mammogram, bone density and upper GI series done over the past few months came out [facility] Medical History Pure hypercholesterolemia Erosive esophagitis Polymyalgia rheumatica Osteoporosis Gastritis Surgical History No pertinent past surgical history Social History Housing: House Alcohol intake: never Patient Tobacco Use Status: Never used Tobacco e-Cigarette/Vaping Use: Never Used Second Hand Smoke Exposure: No service: No Current occupational status: retired Cognitive needs: No Hearing needs: No Vision needs: No Questionnaire Thrive Questionnaire Date Thrive assessed: 10/11/23 SUNNY-7 AMB Questionnaire SUNNY-7 Date SUNNY - 7 assessed: 10/11/23 Source: Developed by Drs. Thom Collado, Verónica Gaitan, Dat Pham and colleagues, with an educational brian from [employer]. Review of Systems Const Denies chills, Denies fatigue, Denies fever(s) and Denies headache(s) ENT Denies dysphagia, Denies dizziness, Denies otalgia, Denies headache(s), Reports neck pain, Denies odynophagia and Denies sore throat Card Denies chest pain, Denies rapid heart rate, Denies irregular heart rhythm, Denies palpitations and Denies dyspnea Resp Denies chest congestion, Denies cough, Denies dyspnea and Denies wheezing GI Reports abdominal pain (recurrent, mostly over the epigastric area), Reports constipation, Denies dysphagia, Denies heartburn, Denies diarrhea, Denies nausea, Denies odynophagia and Denies vomiting Denies urinary frequency, Denies dysuria, Denies urinary incontinence and Denies urinary urgency Musc Reports back pain (over the entire back), Denies arthralgias and Reports neck pain Skin/Breast Denies rash Neuro Denies dizziness, Denies headache(s) and Denies paresthesias Psych Denies anxiety and Denies depression Endo Denies fatigue and Denies palpitations Dirk/Lymph Denies easy bruising Aller/Immun Denies wheezing Physical exam (Primary Care) Vital Signs: Last Vital Signs Pulse 59 01/13/24 12:37 BP 110/70 01/13/24 12:37 Pulse Ox 99 01/13/24 12:37 Oxygen Delivery Method Room Air 01/13/24 12:37 BMI result Body Mass Index 20.5 Tobacco/Smoking Status: Tobacco use Status Tobacco use date assessed 01/13/24 01/13/24 12:43 Patient Tobacco Use Status Never used Tobacco 01/13/24 12:43 e-Cigarette/Vaping Use Never Used 01/13/24 12:43 Thrive Assessment: Date of Thrive Assessment Date Thrive assessed 10/11/23 01/13/24 12:43 Const General: no acute distress and alert HENMT Ears: TM's normal bilaterally and EAC's normal Throat: Yes posterior oropharynx normal and Yes tonsils normal (no TP congesti on) Neck Neck: Yes no lymphadenopathy and Yes supple Thyroid: Thyroid normal Resp Auscultation: clear to auscultation bilaterally, no rales and no wheezes Cardio Rate: regular rate Rhythm: regular rhythm Heart sounds: no murmurs GI Palpation (GI): Soft to palpation, Tenderness to palpation present (GI) (mild) in the epigastrum; with no rebound tenderness and no guarding Auscultation: normal bowel sounds General: Yes no CVA tenderness Back/Spine/Pelvis Back: no CVA tenderness Cervical Spine: Cervical spine tenderness Thoracic/Lumbar Spine: thoracic spinal tenderness and lumbar spinal tenderness Skin Rashes: no rashes Extrem General: Yes no clubbing, cyanosis or edema Results Reviewed Results Reviewed: Laboratory Tests 10/12/23 10/12/23 08:51 09:00 WBC 4.9 Hgb 12.8 Hct 38.9 Plt Count 254 ESR 74 H Sodium 140 Potassium 4.1 Creatinine 0.70 Estimated GFR > 60 Fasting Glucose 93 Calcium 9.7 AST 27 ALT 14 C-Reactive Protein 0.36 Triglycerides 81 Cholesterol 201 H LDL Cholesterol, Calc 141 H HDL Cholesterol 44 Vitamin B12 1479 H 25-OH Vitamin D Total 42.4 TSH 2.02 Ur Specific [place] 1.020 Urine Protein Negative Urine Glucose (UA) Negative Urine Blood Negative Urine Nitrite Negative Ur Leukocyte Esterase Small (1+) H Assessment and Plan Assessment & Plan (1) Osteoporosis with pathological fracture: Code(s): M80.00XA - Age-related osteoporosis with current pathological fracture, unspecified site, initial encounter for fracture Qualifiers: Encounter type: initial encounter Qualified Code(s): M80.00XA - Age- related osteoporosis with current pathological fracture, unspecified site, initial encounter for fracture Plan: Patient's BMD (baseline exam) done on 11/15/2023 revealed (+) severe osteoporosis based on the lowest T-score value of -5.0 in the lumbar spine and her history of fracture of wrist Reinforced fall precautions Have advised patient's sister that she needs to make sure patient is taking daily Vitamin D and Calcium supplements - will start her on Vitamin D3 1000 units QD and Calcium Carbonate 500 mg QD Will send her for some additional labs KERWIN to check her for urinary telopeptides for further evaluation Advised that ordinarily, Alendronate would be the first choice of Tx for osteoporosis but with her current erosive esophagitis, she would NOT be a good candidate for the oral bisphosphonates so will try starting her instead on Prol ia 60 mg SQ every 6 months although we will have to wait and see if her insurance will give us a hard time regarding this Will also refer her to endocrinology for further evaluation and management, gi josem iguel the degree of her osteoporosis (2) Polymyalgia rheumatica: Code(s): M35.3 - Polymyalgia rheumatica Plan: Patient is advised that her sed rate is very high on her recent labs, consistent with PMR - discussed that this is most likely the main reason for her increasing neck and upper back pain which have been bothering her over the past few years Have advised her that ordinarily, we would have started her on high dose oral Prednisone for her PMR but in light of her recently diagnosed erosive esophagitis as well as her severe osteoporosis (T-score of -5.0), will just start her on 20 mg QD and gradually adjust it from there accordingly Will also refer her to rheumatology for further evaluation and management of her PMR (3) Erosive esophagitis: Code(s): K22.10 - Ulcer of esophagus without bleeding Plan: Have discussed with patient and her sister that her recent upper GI series done last month revealed findings of esophageal dysmotility and thickened gastric mucosal folds in addition to multiple areas of contrast pooling in the fundus, body, and antrum of the stomach, suggestive of erosive gastritis and recommend c orrelation with EGD Reinforced dietary restrictions Will increase her Omeprazole 20 mg to 2 capsules QD Will also refer her to GI for further evaluation and management and consideration for EGD - patient is advised that with her erosive esophagitis, an EGD and probably Bx is indicated (4) Pure hypercholesterolemia: Code(s): E78.00 - Pure hypercholesterolemia, unspecified Plan: Results of her labs done back in September 2023 reviewed and discussed with patient - is advised that her total and LDL cholesterol numbers are slightly higher than recommended Have advised her to try staying on a low cholesterol diet for now and if she can improve on her cholesterol numbers with diet modification alone, she should not need to take any Rx for her cholesterol Will have her recheck her labs and fasting lipids in 3 months for follow up (5) Lumbar degenerative disc disease: Code(s): M51.36 - Other intervertebral disc degeneration, lumbar region Plan: Reinforced activity and weight-lifting restrictions although patient's activity level is currently very limited so there is not much danger of this happening Have advised her that her recent lumbar spine x-rays done a few months ago revealed mild loss of height of her L5 vertebral body as well as mild retrolisthesis of L4 on L5 but these may also be partly brought about by her severe osteoporosis Plan Follow up in 3 months Orders: Orders Collagen Crosslinks NTX Today M80.00XA - Age-related osteoporosis with current pathological fracture, unspecified site, initial encounter for fracture, M81.0 - Age-related osteoporosis without current pathological fracture Comprehensive [place]. Panel Fast 3 Months E78.00 - Pure hypercholesterolemia, unspecified Complete Blood Count Auto Diff 3 Months D64.9 - Anemia, unspecified Erythrocyte Sedimentation Rate 3 Months M79.7 - Fibromyalgia Lipid Panel 3 Months E78.00 - Pure hypercholesterolemia, unspecified TSH reflex Free T4 3 Months E78.00 - Pure hypercholesterolemia, unspecified UA CC w/rflx Micro + Cult 3 Months R30.0 - Dysuria Vitamin D 25-OH Total 3 Months E55.9 - Vitamin D deficiency, unspecified Referrals Rheumatology Referral M35.3 - Polymyalgia rheumatica Endocrinology Referral M81.0 - Age-related osteoporosis without current pathological fracture Gastroenterology Referral K22.10 - Ulcer of esophagus without bleeding Medications: New cholecalciferol (vitamin D3) 25 mcg PO DAILY 90 days 90 caps 3RF E55.9 - Vitamin D deficiency, unspecified denosumab (Prolia) 60 mg subcut [id number] 1 mL 1RF M81.0 - Age-related osteoporosis without current pathological fracture prednisone 20 mg PO DAILY 30 days 30 tabs 3RF M35.3 - Polymyalgia rheumatica denosumab (Prolia) 60 mg subcut [id number] 1 mL 1RF M81.0 - Age-related osteoporosis without current pathological fracture calcium carbonate 500 mg PO DAILY 90 days 90 tabs 3RF [STANDARD LIGHTWEIGHT WHEELCHAIR] As directed 1 ea 0RF M51.36 - Other intervertebral disc degeneration, lumbar region, M81.0 - Age-related osteoporosis without current pathological fracture Changed From omeprazole 20 mg PO DAILY 90 days 90 caps 1RF To omeprazole 40 mg (2 x 20 mg) PO DAILY 90 days 180 caps 1RF Coding Level of Care Code Est Pt Level 4 (18379) Diagnoses Osteoporosis with pathological fracture, initial encounter M80.00XA Encounter type: initial encounter Polymyalgia rheumatica M35.3 Erosive esophagitis K22.10 Pure hypercholesterolemia E78.00 Lumbar degenerative disc disease M51.36
[2024-01-13 12:37] VITALS: BP 110/70; PULSE 59; O2SAT 99; BMI 20.5
== END 2024-01-13 13:25 | disposition home or self-care (01) ==
LOC: HO.HMGH 12:18
PROVIDERS: PCP Internal Medicine; Visit Provider Internal Medicine
DX: M80.00XA Age-related osteoporosis with current pathological fracture, unspecified site, initial encounter for fracture (principal); M35.3 Polymyalgia rheumatica; K22.10 Ulcer of esophagus without bleeding; E78.00 Pure hypercholesterolemia, unspecified; M51.36 Other intervertebral disc degeneration, lumbar region
CPT/HCPCS: 99214

== ENCOUNTER 2024-01-13 13:35 | Outpatient (REF) | payer MEDICAID, SELFPAY | END 2024-01-13 13:36 | disposition home or self-care (01) | LOC: HO.LAB 13:35 | PROVIDERS: PCP Internal Medicine; Visit Provider Internal Medicine | DX: Z13.89 Encounter for screening for other disorder (principal) ==

== ENCOUNTER 2024-01-16 10:08 | Outpatient (REF) | payer MEDICAID, SELFPAY ==
[2024-01-22 09:09] LABS: N-Telopeptide 38 (see note); NTXCreaRU 64 mg/dL (20-275)
== END 2024-01-16 10:09 | disposition home or self-care (01) ==
LOC: HO.LNP 10:08
PROVIDERS: Visit Provider Internal Medicine
DX: M81.0 Age-related osteoporosis without current pathological fracture (principal)
CPT/HCPCS: 82523

== ENCOUNTER 2024-01-28 20:53 | Emergency (ER) | payer MEDICAID, SELFPAY ==
--- NOTE | ~2024-01-28 | CT_ITS ---
CT HEAD WITHOUT CONTRAST CLINICAL HISTORY: Fall with head injury, pain TECHNIQUE: CT of the brain was performed from the skull base through the vertex using a routine non-contrast protocol. All CT exams at this location are performed using dose optimization techniques as appropriate to a performed exam including at least one of the following: * Automated exposure control * Adjustment of the mA and/or kV according to patient size (this includes techniques or standardized protocols for targeted exams where dose is matched to indication / reason for exam; i/e/ extremities or head) * Use of iterative reconstructive technique DLP: 539 mGy-cm COMPARISON: None. RESULTS: There is no evidence of acute intracranial hemorrhage, acute large vessel infarct, midline shift or mass effect. The anthony-white differentiation is preserved. Physiologic calcifications seen within the basal ganglia. The ventricles and sulci are within normal limits in size and configuration. There is no evidence of hydrocephalus. There are no extraaxial collections. Osseous structures are intact. Paranasal sinuses and mastoid air cells are well aerated. CT/CT head/brain wo IV con IMPRESSION: Unremarkable non-contrast CT of the brain.
[2024-01-28 21:02] VITALS: BP 155/72; PULSE 72; RESP 20; TEMP 37; O2SAT 98; BMI 24.9
--- NOTE | 2024-01-29 02:40 | ED_ITS ---
HPI - Fall General Chief Complaint: Fall Stated Complaint: RT side head pain s/p fall today Time Seen by Provider: 01/29/24 01:13 Source: patient and family (Son-in-law) Mode of arrival: ambulatory History of Present Illness HPI Narrative: 68-year-old female, Angolan speaking, fell earlier in the day down 2 stairs without loss of consciousness and struck the left side of her head and now complains some difficulty with pain but no visual changes, also has pain to bilateral knees and left shoulder. Related Data Previous Rx's ?Medication ?Instructions ?Recorded famotidine 20 mg tablet 20 mg PO BEDTIME 14 days #14 tabs 10/11/23 STANDARD LIGHTWEIGHT WHEELCHAIR #1 ea 01/13/24 calcium carbonate 500 mg PO DAILY 90 days #90 tabs 01/13/24 cholecalciferol (vitamin D3) 25 25 mcg PO DAILY 90 days #90 caps 01/13/24 mcg (1,000 unit) capsule denosumab 60 mg/mL subcutaneous 60 mg subcut [id number] #1 mL 01/13/24 syringe (Prolia) omeprazole 20 mg capsule,delayed 40 mg (2 x 20 mg) PO DAILY 90 days 01/13/24 release #180 caps prednisone 20 mg tablet 20 mg PO DAILY 30 days #30 tabs 01/13/24 Allergies Allergy/AdvReac Type Severity Reaction Status Date / Time Unable to Assess Allergy Verified 01/28/24 21:08 Review of Systems Review of Systems: Pertinent positives and negatives as stated in HPI [facility] Past Medical History Source: nursing notes reviewed Medical History Pure hypercholesterolemia Erosive esophagitis Polymyalgia rheumatica Osteoporosis Gastritis Surgical History No pertinent past surgical history Social History Social History Housing: House Alcohol intake: never Patient Tobacco Use Status: Never used Tobacco e-Cigarette/Vaping Use: Never Used Second Hand Smoke Exposure: No Advance Directives: No Advance Directives Information Provided: Yes Do you have a plan to hurt others: No Plan service: No Current occupational status: retired Cognitive needs: No Hearing needs: No Vision needs: No Physical Exam Vital Signs: Vital Signs: Last Vital Signs Temp 98.4 F 01/29/24 02:58 Pulse 70 01/29/24 02:58 Resp 16 01/29/24 02:58 BP 153/76 H 01/29/24 02:58 Pulse Ox 98 01/29/24 02:58 O2 Del Method Room Air 01/29/24 02:58 BMI result Body Mass Index 24.9 VITAL SIGNS: Reviewed. GENERAL: Well developed, well nourished, in no acute distress. HEAD: Normocephalic/atraumatic EYES: PERRLA, EOMI EARS: Ext canals without abnormality NOSE: Nares patent bilateral OROPHARYNX: no oral lesions noted, posterior pharynx clear NECK: Supple, no adenopathy LUNGS: Normal breath sounds. No adventitious sounds or accessory muscle use. SpO2<98> CARDIOVASCULAR: Regular rate and rhythm without noted murmurs ABDOMEN: Soft, non-tender, non-distended with bowel sounds. PELVIS: Stable, nontender MUSCULOSKELETAL: No tenderness, deformities, or effusions noted on gross inspection. EXTREMITIES: No cyanosis, clubbing or edema. BILATERAL KNEE: There are contusions without deformity, full range of motion noted LEFT SHOULDER: Superficial abrasion to the lateral aspect of the left shoulder, no deformity SKIN: Inspection of the skin reveals no rashes NEUROLOGIC: Alert and oriented x 4. Strength and sensation to light touch were grossly intact x 4. Medications Administered Discontinued Medications Generic Name Dose Route Start Last Admin Trade Name Freq PRN Reason Stop Dose Admin Acetaminophen 975 mg 01/29/24 02:40 01/29/24 02:54 Acetaminophen 325 Mg Tablet PO 01/29/24 02:41 975 mg ONCE ONE Administration Medical Decision Making Medical Decision Making [facility] Narrative: 68-year-old female for whom we were unable to get any building illuminating engineer services for Angolan, fortunately son-in-law was at bedside who speaks Icelandic. I reviewed the CT scan which was negative for intracranial hemorrhage or mass effect and otherwise my interpretation is in agreement with radiology's impression. Patient received Tylenol prior to discharge. Differential Diagnosis Differential Diagnoses: The differential diagnosis associated with the presentation includes Please see the discussion above Admission/Observation Consideration of admission/observation: Escalation of care including admission/observation considered Please see the discussion above Radiology Impression Discussion of test interpretation with radiology: I have reviewed the radiologist's reading. Radiologist Impression: Please see the discussion above External Record Review External record reviewed: Outpatient record and Prior outpatient labs Critical Care Time Critical Care Time Critical Care Time: Yes Total Critical Care Time: 30 Attestation: I personally attest to this time spent taking care of the patient. Discharge Plan Discharge Clinical Impression: Fall, Superficial abrasion, Contusion of right knee, Contusion of knee, left Patient Disposition: Home, Self-Care Instructions: Fall Prevention for Older Adults (ED), Contusion in Adults (ED) Additional Instructions: Recommend [id number] Tylenol/ibuprofen as needed for pain control. Prescriptions: No Action famotidine 20 mg tablet 20 mg PO BEDTIME 14 Days Qty: 14 0RF prednisone 20 mg tablet 20 mg PO DAILY 30 Days Qty: 30 3RF omeprazole 20 mg capsule,delayed release(DR/EC) 40 mg PO DAILY 90 Days Qty: 180 1RF cholecalciferol (vitamin D3) 25 mcg (1,000 unit) capsule 25 mcg PO DAILY 90 Days Qty: 90 3RF calcium carbonate 500 mg calcium (1,250 mg) tablet 500 mg PO DAILY 90 Days Qty: 90 3RF (DME) STANDARD LIGHTWEIGHT WHEELCHAIR See Rx Instructions .Route .MEDSUPPLY Qty: 1 0RF Rx Instructions: As directed Prolia 60 mg/mL syringe 60 mg subcut [id number] Qty: 1 1RF Interventions: ED Discharge Assessment Last Done: 01/29/24 02:58 Discharge Date/Time: 01/29/24 02:59 Print Language: Angolan
[2024-01-29] MEDS: Acetaminophen 325 MG TABLET 975 MG PO (02:54)
[2024-01-29 02:58] VITALS: BP 153/76; PULSE 70; RESP 16; TEMP 36.9; O2SAT 98
== END 2024-01-29 02:59 | disposition home or self-care (01) ==
PROVIDERS: Emergency Provider Student in an Organized Health Care Education/Training Program
DX: S80.211A Abrasion, right knee, initial encounter (principal); S80.212A Abrasion, left knee, initial encounter; R51.9 Headache, unspecified; M25.512 Pain in left shoulder; W10.9XXA Fall (on) (from) unspecified stairs and steps, initial encounter; Y93.9 Activity, unspecified; Y92.9 Unspecified place or not applicable; Y99.8 Other external cause status; Z79.899 Other long term (current) drug therapy
CPT/HCPCS: 70450; 99284

== ENCOUNTER 2024-03-24 14:40 | Outpatient (AMB) | payer MEDICAID, SELFPAY ==
--- NOTE | 2024-03-24 14:44 | A.OFFVIS_ITS ---
Vital Signs 03/24/24 14:48 Height 5 ft 4 in Weight 109 lb 5.588 oz BMI 18.8 BP 112/60 Blood Pressure Location Rt brachial Position Sitting Respiration 16 Pulse 73 Pulse Source Pulse Oximeter Pulse Oximetry (%) 97 Oxygen Delivery Method Room Air Intake Visit Reasons: RA Intake Note: Patient presents for RA. Allergies Unable to Assess Allergy (Verified 03/24/24 14:47) Medication List - Last Reconciled 03/24/24 by Mack Blake MD calcium carbonate 500 mg PO DAILY 90 days cholecalciferol (vitamin D3) 25 mcg PO DAILY 90 days denosumab (Prolia) 60 mg subcut [id number] famotidine 20 mg PO BEDTIME 14 days omeprazole 40 mg (2 x 20 mg) PO DAILY 90 days prednisone 20 mg PO DAILY 30 days [STANDARD LIGHTWEIGHT WHEELCHAIR As directed] HPI Comments Details: This is a 68-year-old female was referred by her PCP for evaluation of PMR. Patient has been complaining of pain and stiffness of her back and neck. Her ESR was significantly elevated. Dr. Ornelas suspected PMR and started him on prednisone 20 mg daily. History is quite limited, patient is accompanied by her sister who does not know her medical history. Patient states that she continues to have neck and lower back pain. Has generalized morning stiffness lasting about 10 minutes. She does not know whether she takes prednisone. She does not have her medications with her. Denies any swollen joints. She is unaware of any family history of an autoimmune rheumatic disease. Of note patient has severe osteoporosis, she broke her right wrist about 10 years ago. She also has erosive esophagitis and gastritis. [facility] Medical History Pure hypercholesterolemia Erosive esophagitis Polymyalgia rheumatica Osteoporosis Gastritis Surgical History No pertinent past surgical history Social History Housing: House Alcohol intake: never Patient Tobacco Use Status: Never used Tobacco e-Cigarette/Vaping Use: Never Used Second Hand Smoke Exposure: No service: No Current occupational status: retired Cognitive needs: No Hearing needs: No Vision needs: No Review of Systems ENT Reports neck pain Musc Reports back pain, Reports arthralgias, Denies joint swelling, Reports neck pain and Reports stiffness Physical Exam Vital Signs: Last Vital Signs Pulse 73 03/24/24 14:48 Resp 16 03/24/24 14:48 BP 112/60 03/24/24 14:48 Pulse Ox 97 03/24/24 14:48 Oxygen Delivery Method Room Air 03/24/24 14:48 BMI result Body Mass Index 18.8 Const General: cooperative, healthy appearing and comfortable Nutritional Appearance: thin Limitations: no limitations HEENT Head: Yes normocephalic and Yes atraumatic Mouth: moist mucous membranes Resp Effort & Inspection: normal respiratory effort and able to speak in complete sentences Cardio Rate: regular rate Skin General skin exam: no rashes or lesions noted Extrem Other: No active peripheral synovitis Normal range of motion of elbows and shoulders without pain Negative rotator cuff provocative maneuvers bilaterally Negative Speed's test bilaterally No knee pain with full flexion-extension Positive straight leg raise test at 90 degrees No hip pain with manipulation Normal nailfold capillaroscopy Assessment & Plan Assessment & Plan (1) Polyarthralgia: Code(s): M25.50 - Pain in unspecified joint Category: Medical Plan: This is a 68-year-old female who presents for evaluation of possible PMR. History is very limited, patient does not her medications, her sister also does not know her medications or medical history. Patient was having neck and lower back pain, her ESR was significantly elevated. She was prescribed prednisone by Dr. Ornelas for suspected PMR, patient however does not know whether she has been actually taking it. Upper GI series with findings suggestive of erosive esophagitis and gastritis. I will order comprehensive serology to screen for underlying autoimmune rheumatic disease. Certainly patient needs GI evaluation for further evaluation of her esophageal/gastric lesion. Specifically to rule out malignancy. I asked patient to bring her medications to the visit next time (2) Osteoporosis with pathological fracture: Code(s): M80.00XA - Age-related osteoporosis with current pathological fracture, unspecified site, initial encounter for fracture Category: Medical Qualifiers: Encounter type: initial encounter Qualified Code(s): M80.00XA - Age- related osteoporosis with current pathological fracture, unspecified site, in itial encounter for fracture Plan: Severe osteoporosis, history of right wrist fracture, with T-score is-5.0. Prolia was pursued by Dr. Ornelas but it does not look like patient received it. I will check labs to evaluate for secondary causes of osteoporosis. Likely an anabolic agents such as Romosuzumab or PTH analogs might be more suitable if approved If patient is eventually diagnosed with PMR, I would like to avoid prednisone as much as possible, given the severity of her osteoporosis as well as her erosive gastritis. Alyssa can be considered Plan I spent 49 minutes reviewing patient's chart, evaluating patient, ordering diagnostic workup, counseling patient and documenting in the chart Orders: Orders Complete Blood Count Auto Diff Today M25.50 - Pain in unspecified joint Comprehensive Met. Panel Today M25.50 - Pain in unspecified joint Erythrocyte Sedimentation Rate Today M25.50 - Pain in unspecified joint Immunofixation Pnl, Serum Today M25.50 - Pain in unspecified joint Protein Electrophoresis, Serum Today M25.50 - Pain in unspecified joint Hepatitis A,B,C Profile Today Z11.59 - Encounter for screening for other viral diseases T Spot TB Today Z11.7 - Encounter for testing for latent tuberculosis infection Cyclic Citrullinated Peptide Today M25.50 - Pain in unspecified joint EVA Reflex Titer and Pattern Today M32.9 - Systemic lupus erythematosus, unspecified Anti Extractable Nuclear Ag Today M32.9 - Systemic lupus erythematosus, unspecified Anti DNA DS Antibody Today M32.9 - Systemic lupus erythematosus, unspecified Complement C3 Today M32.9 - Systemic lupus erythematosus, unspecified DNA Double Stranded-Crithidia Today M32.9 - Systemic lupus erythematosus, unspecified Complement C4 Today M32.9 - Systemic lupus erythematosus, unspecified Protein Creatinine Ratio, Ur Today M32.9 - Systemic lupus erythematosus, unspecified Collagen Type I C-Telopeptide Today M80.00XA - Age-related osteoporosis with current pathological fracture, unspecified site, initial encounter for fracture Phosphorus Today M80.00XA - Age-related osteoporosis with current pathological fracture, unspecified site, initial encounter for fracture Magnesium Today M80.00XA - Age-related osteoporosis with current pathological fracture, unspecified site, initial encounter for fracture C Reactive Protein Today M25.50 - Pain in unspecified joint Lyme IgG/IgM w/reflex to WB Today M25.50 - Pain in unspecified joint Rheumatoid Factor Today M25.50 - Pain in unspecified joint HLA B27 Today M45.9 - Ankylosing spondylitis of unspecified sites in spine Sjogren's Antibodies Today M32.9 - Systemic lupus erythematosus, unspecified UA w Microscopic Today M32.9 - Systemic lupus erythematosus, unspecified Parathyroid Hormone Intact Today M80.00XA - Age-related osteoporosis with current pathological fracture, unspecified site, initial encounter for fracture Angiotensin Converting Enzyme Today D86.9 - Sarcoidosis, unspecified ANCA Vasculitides Today I77.6 - Arteritis, unspecified Immunoglobulin G Subclasses Today D89.84 - IgG4-related disease Scleroderma 12 Panel Today M34.9 - Systemic sclerosis, unspecified Coding Level of Care Code New Pt Level 4 (91720) Diagnoses Polyarthralgia M25.50 Osteoporosis with pathological fracture, initial encounter M80.00XA Encounter type: initial encounter
[2024-03-24 14:48] VITALS: BP 112/60; PULSE 73; RESP 16; O2SAT 97; BMI 18.8
== END 2024-03-24 15:17 | disposition home or self-care (01) ==
PROVIDERS: Visit Provider Student in an Organized Health Care Education/Training Program
DX: M25.50 Pain in unspecified joint (principal); M80.00XA Age-related osteoporosis with current pathological fracture, unspecified site, initial encounter for fracture
CPT/HCPCS: 99204

== ENCOUNTER 2024-03-24 14:40 | Outpatient (REF) | payer MEDICAID, SELFPAY | END 2024-03-24 14:41 | disposition home or self-care (01) | LOC: HO.LAB 14:40 | PROVIDERS: Absent Provider Internal Medicine; PCP Internal Medicine; Visit Provider Student in an Organized Health Care Education/Training Program | DX: M25.50 Pain in unspecified joint (principal); M81.0 Age-related osteoporosis without current pathological fracture | CPT/HCPCS: 99202 ==

== ENCOUNTER 2024-03-25 08:00 | Outpatient (REF) | payer MEDICAID, SELFPAY ==
[2024-03-25 08:33] LABS: MANUAL DIFF FLAG NO
[2024-03-25 09:11] LABS: Basophils Percent Auto 0.7 % (0-2); Eosinophils Absolute Auto 0.2 X10*3/uL (0.0-0.4); Eosinophils Percent Auto 4.2 % (0-4); Hematocrit 36.7 % (37.0-47.0); Lymphocytes Absolute Auto 2.1 X10*3/uL (1.2-4.9); Lymphocytes Percent Auto 52.1 % (20-40); Mean Corpuscular HGB Conc 32.7 g/dl (31.0-35.0); Mean Corpuscular Hemoglobin 29.5 pg (27.0-33.0); Mean Corpuscular Volume 90.2 fL (80.0-98.0); Monocytes Absolute Auto 0.4 X10*3/uL (0.1-1.2); Monocytes Percent Auto 10.7 % (2-11); Neutrophils Absolute Auto 1.3 x10*3/uL (2.0-8.3); Neutrophils Percent Auto 32.3 % (45-73); Platelet Count 184 X10*3/uL (160-400); Red Blood Count 4.07 X10*6/uL (4.20-5.50); Red Cell Distribution Width 12.4 % (11.0-16.0)
[2024-03-25 09:40] LABS: Alanine Aminotransferase 16 U/L (0-31); Albumin Level 4.2 g/dL (3.5-5.0); Alkaline Phosphatase 103 U/L (39-117); Anion Gap 10 (12-20); Aspartate Amino Transferase 30 U/L (5-31); Bilirubin Total 0.3 mg/dL (0.0-1.0); Blood Urea Nitrogen 13 mg/dL (9-16); C Reactive Protein 0.25 mg/dL (< or = 0.50); Calcium 9.3 mg/dL (8.4-10.2); Carbon Dioxide 23 mmol/L (22-29); Chloride 110 mmol/L (96-108); Estimated Glomerular Filt Rate > 60; Glucose Random 90 mg/dL (60-115); Magnesium 2.1 mg/dL (1.6-2.6); Phosphorus 2.6 mg/dL (2.7-4.5); Potassium 3.7 mmol/L (3.3-5.1); Sodium 139 mmol/L (135-145); Total Protein 8.3 g/dL (6.5-8.0)
[2024-03-25 09:41] LABS: Appearance Urine Clear; Color Urine Yellow; Glucose Urine UA Negative (Negative); Leukocyte Esterase Urine Small (1+) (Negative); Nitrite Urine Negative (Negative); Specific Gravity - Urine 1.015 (1.005-1.025); UMIC TRIGGER UA YES; Urine Blood Negative (Negative); Urine Ketones Negative (Negative); Urine Protein Negative (Neg-Trace)
[2024-03-25 09:45] LABS: Parathyroid Hormone Intact 74.2 pg/mL (8.7-77.1)
[2024-03-25 09:52] LABS: Bacteria Urine None Seen (None Seen); Hyaline Casts Urine 0-2 /LPF (0-2); RBC Urine 0-2 /HPF (0-2); Squamous Epithelial Cell Urine 0-2 /HPF (0-2); WBC Urine 0-5 /HPF (0-5)
[2024-03-25 09:53] LABS: Rheumatoid Factor 14.9 IU/mL (<15.0)
[2024-03-25 10:00] LABS: Erythrocyte Sedimentation Rate 68 MM/HR (0-20)
[2024-03-25 10:17] LABS: Total Protein Urine Random < 7 mg/dL (<12)
[2024-03-27 05:30] LABS: HBS Num1 135.73 mIU/mL (0-7.99); HBc Num1 2.23 S/CO (0.00-0.79); HBsAGNum1 0.26 S/CO (0.00-0.99); Hepatitis A Antibody IgM 0.35 Index (0-0.79); Hepatitis B Surface Antigen Negative (Negative); ~Hepatitis A Antibody IgM Nonreactive (Nonreactive); ~Hepatitis B Surface Antibody REACTIVE (Nonreactive); ~Hepatitis C Antibody Nonreactive (Nonreactive)
[2024-03-27 06:16] LABS: HBc Num2 2.54 S/CO; HBc Num3 2.47 S/CO; Hepatitis B Core Antibody Reactive (Nonreactive)
[2024-03-27 12:28] LABS: Prot Elec - Albumin 4.3 g/dL (3.8-4.8); Prot Elec - Alpha1 0.2 g/dL (0.2-0.3); Prot Elec - Alpha2 0.7 g/dL (0.5-0.9); Prot Elec - Beta 1 0.4 g/dL (0.4-0.6); Prot Elec - Beta 2 0.5 g/dL (0.2-0.5); Prot Elec - Gamma 1.9 g/dL (0.8-1.7)
[2024-03-27 22:19] LABS: TS Negative Control Passed; TS Panel A 11; TS Panel B 10; TS Positive Control Passed; TSpotTB Positive (Negative)
[2024-03-28 00:54] LABS: Complement C3 119 mg/dL (83-193)
[2024-03-29 21:03] LABS: Collagen Type I C-Telopeptide 489 pg/mL (see note)
[2024-03-30 02:28] LABS: Angiotensin Converting Enzyme 57.1 U/L (9-67)
[2024-03-30 12:23] LABS: Immunoglobulin G Subclass 1 1338 mg/dL (382-929); Immunoglobulin G Subclass 2 376 mg/dL (241-700); Immunoglobulin G Subclass 3 126 mg/dL (22-178); Immunoglobulin G Subclass 4 9.8 mg/dL (4-86); Immunoglobulin G Total 2027 mg/dL (600-1540)
[2024-03-30 17:33] LABS: Lyme Abs Screen <0.90 index
[2024-03-30 22:33] LABS: Anti DNA DS Antibody 1 IU/mL; Antibody to SS-A Antigen >8.0 POS AI (<1.0 NEG); Antibody to SS-B Antigen >8.0 POS AI (<1.0 NEG); Myeloperoxidase Antibody <1.0 AI; Proteinase 3 PR3 Antibodies <1.0 AI; SM/Ribonucleoprotein Ab <1.0 NEG AI (<1.0 NEG); Smith Protein <1.0 NEG AI (<1.0 NEG)
[2024-03-31 07:53] LABS: IgA 470 mg/dL (70-320); IgG 2218 mg/dL (600-1540); IgM 34 mg/dL (50-300)
[2024-03-31 12:28] LABS: Cyclic Citrullinated Peptide <16 UNITS
[2024-03-31 13:58] LABS: HLA B27 Negative (Negative)
[2024-04-01 15:33] LABS: ANA Pattern 2 Nuclear, Speckled; Anti Nuclear Antibody Pattern Nuclear, Nucleolar; Anti Nuclear Antibody Screen POSITIVE (NEGATIVE)
[2024-04-07 16:08] LABS: DNAds, Crithidia Antibody Negative (Negative)
[2024-04-23 15:54] LABS: Centromere Protein A Ab <11 SI (<11); Centromere Protein B Ab <11 SI (<11); Fibrillarin Ab <11 SI (<11); PM SCL 100 Ab <11 SI (<11); PM SCL 75 Ab <11 SI (<11); RNA Polymerase III RP11 Ab <11 SI (<11); RNA Polymerase III RP155 Ab <11 SI (<11); SCL-70 Extractable Nuclear Ab <11 SI (<11); Th-To Ab <11 SI (<11); U1 SNRNP RNP 70KD <11 SI (<11); U1 SNRNP RNP A <11 SI (<11); U1 SNRNP RNP C <11 SI (<11)
== END 2024-03-25 08:01 | disposition home or self-care (01) ==
LOC: HO.LAB 08:00
PROVIDERS: PCP Internal Medicine; Visit Provider Student in an Organized Health Care Education/Training Program
DX: Z11.7 Encounter for testing for latent tuberculosis infection (principal); Z11.59 Encounter for screening for other viral diseases; M25.50 Pain in unspecified joint; M32.9 Systemic lupus erythematosus, unspecified; M45.9 Ankylosing spondylitis of unspecified sites in spine; D89.84 IgG4-related disease; D86.9 Sarcoidosis, unspecified; I77.6 Arteritis, unspecified; M34.9 Systemic sclerosis, unspecified; M81.0 Age-related osteoporosis without current pathological fracture
CPT/HCPCS: 36415; 80053; 81001; 82164; 82523; 82570; 82784; 83735; 83970; 84100; 84156; 84165; 84182; 85025; 85652; 86021; 86038; 86039; 86140; 86160; 86200; 86225; 86235; 86255; 86334; 86431; 86481; 86617; 86618; 86704; 86706; 86709; 86803; 86812; 87340

== ENCOUNTER 2024-04-15 12:30 | Outpatient (AMB) | payer MEDICAID, SELFPAY ==
[2024-04-15 12:31] VITALS: BP 114/68; PULSE 70; O2SAT 98; BMI 18.4
--- NOTE | 2024-04-15 12:31 | A.OFFPC_ITS ---
Vital Signs 04/15/24 12:31 Height 5 ft 4 in Weight 107 lb 0.8 oz BMI 18.4 BP 114/68 Blood Pressure Location Lt brachial Position Sitting Pulse 70 Pulse Source Pulse Oximeter Pulse Oximetry (%) 98 Oxygen Delivery Method Room Air Intake Visit Reasons: 3mth f/u Car Usher Required: No Allergies Unable to Assess Allergy (Verified 04/15/24 12:48) Medication List - Last Reconciled 04/15/24 by Coleman Ornelas MD calcium carbonate 500 mg PO DAILY 90 days cholecalciferol (vitamin D3) 25 mcg PO DAILY 90 days denosumab (Prolia) 60 mg subcut [id number] famotidine 20 mg PO BEDTIME 14 days omeprazole 40 mg (2 x 20 mg) PO DAILY 90 days prednisone 20 mg PO DAILY 30 days [STANDARD LIGHTWEIGHT WHEELCHAIR As directed] Tobacco use date assessed: 04/15/24 Fall risk assessment: No Falls in past year Last assessed Fall Risk: 04/15/24 Dental Screening Dental Screen Date: 10/11/23 HPI 3mth f/u HPI Details Patient comes in today for her follow up visit States that she currently feels okay She denies any headaches or dizziness Denies any chest pains, no increased SOB No nausea/vomiting, no abdominal pain No change in bowel habits noted She had her follow up labs done a few weeks ago although these were non-fasting labs so they did not include her repeat fasting lipid profile She is now scheduled to be seen by GI next month for further evaluation of her esophagitis Her sister states that she has not been able to tolerate her Omeprazole at 40 mg QD and is instead just taking it at 20 mg QD Patient recalls that she did feel a lot better earlier this year when she was taking a bedtime dose of Famotidine but the Rx was only good for 2 weeks at the time She was also seen by rheumatology earlier this month and has been sent for several additional labs for further evaluation; has a follow up appt with Dr. Blake early next month [facility] Medical History Pure hypercholesterolemia Erosive esophagitis Polymyalgia rheumatica Osteoporosis Gastritis Surgical History No pertinent past surgical history Social History Housing: House Alcohol intake: never Patient Tobacco Use Status: Never used Tobacco e-Cigarette/Vaping Use: Never Used Second Hand Smoke Exposure: No service: No Current occupational status: retired Cognitive needs: No Hearing needs: No Vision needs: No Questionnaire Thrive Questionnaire Date Thrive assessed: 10/11/23 AUDIT C Alcohol Use Questionnaire (AUDIT-C) 1. How often do you have a drink containing alcohol?: Never Total Score: 0 Score Reviewed/Action Taken: Yes SUNNY-7 AMB Questionnaire SUNNY-7 Date SUNNY - 7 assessed: 10/11/23 Source: Developed by Drs. Thom Collado, Verónica Gaitan, Dat Pham and colleagues, with an educational brian from [employer]. Review of Systems Const Denies chills, Denies fatigue, Denies fever(s) and Denies headache(s) ENT Denies dysphagia, Denies dizziness, Denies otalgia, Denies headache(s), Reports neck pain, Denies odynophagia and Denies sore throat Card Denies chest pain, Denies rapid heart rate, Denies irregular heart rhythm, Denies palpitations and Denies dyspnea Resp Denies chest congestion, Denies cough, Denies dyspnea and Denies wheezing GI Reports abdominal pain (mostly over the epigastric area - improved with Rx), Reports constipation, Denies dysphagia, Denies heartburn, Denies diarrhea, De nies nausea, Denies odynophagia and Denies vomiting Denies urinary frequency, Denies dysuria, Denies urinary incontinence and Denies urinary urgency Musc Reports back pain (over the entire back), Denies arthralgias and Reports neck pain Skin/Breast Denies rash Neuro Denies dizziness, Denies headache(s) and Denies paresthesias Psych Denies anxiety and Denies depression Endo Denies fatigue and Denies palpitations Dirk/Lymph Denies easy bruising Aller/Immun Denies wheezing Physical exam (Primary Care) Vital Signs: Last Vital Signs Pulse 70 04/15/24 12:31 BP 114/68 04/15/24 12:31 Pulse Ox 98 04/15/24 12:31 Oxygen Delivery Method Room Air 04/15/24 12:31 BMI result Body Mass Index 18.4 Tobacco/Smoking Status: Tobacco use Status Tobacco use date assessed 04/15/24 04/15/24 12:32 Patient Tobacco Use Status Never used Tobacco 04/15/24 12:32 e-Cigarette/Vaping Use Never Used 04/15/24 12:32 Thrive Assessment: Date of Thrive Assessment Date Thrive assessed 10/11/23 04/15/24 12:32 Const General: no acute distress and alert HENMT Ears: TM's normal bilaterally and EAC's normal Throat: Yes posterior oropharynx normal and Yes tonsils normal (no TP congestion) Neck Neck: Yes no lymphadenopathy and Yes supple Thyroid: Thyroid normal Resp Auscultation: clear to auscultation bilaterally, no rales and no wheezes Cardio Rate: regular rate Rhythm: regular rhythm Heart sounds: no murmurs GI Palpation (GI): Soft to palpation, Tenderness to palpation present (GI) (mild) in the epigastrum; with no rebound tenderness, no guarding and not rigid Auscultation: normal bowel sounds General: Yes no CVA tenderness Back/Spine/Pelvis Back: no CVA tenderness Cervical Spine: Cervical spine tenderness Thoracic/Lumbar Spine: thoracic spinal tenderness and lumbar spinal tenderness Skin Rashes: no rashes Extrem General: Yes no clubbing, cyanosis or edema Results Reviewed Results Reviewed: Laboratory Tests 03/25/24 03/25/24 08:09 08:32 WBC 4.0 L Hgb 12.0 Hct 36.7 L Plt Count 184 D ESR 68 H Sodium 139 Potassium 3.7 Creatinine 0.79 Estimated GFR > 60 Random Glucose 90 Calcium 9.3 Phosphorus 2.6 L Magnesium 2.1 AST 30 ALT 16 C-Reactive Protein 0.25 Angiotensin Convert Enz 57.1 Ur Specific [place] 1.015 Urine Protein Negative Urine Glucose (UA) Negative Urine Blood Negative Urine Nitrite Negative Ur Leukocyte Esterase Small (1+) H IgG Total 2218 H IgG Subclass 1 1338 H Assessment and Plan Assessment & Plan (1) Osteoporosis with pathological fracture: Code(s): M80.00XA - Age-related osteoporosis with current pathological fracture, unspecified site, initial encounter for fracture Qualifiers: Encounter type: initial encounter Qualified Code(s): M80.00XA - Age- related osteoporosis with current pathological fracture, unspecified site, initial encounter for fracture Plan: Patient's BMD (baseline exam) done on 11/15/2023 revealed (+) severe osteoporosis based on the lowest T-score value of -5.0 in the lumbar spine and her history of fracture of wrist Her urine NTx came back normal Reinforced fall precautions Continue Vitamin D3 1000 units QD and Calcium Carbonate 500 mg QD Continue Prolia 60 mg SQ every 6 months - due to her erosive esophagitis, she is NOT be a good candidate for oral bisphosphonate Tx We previously referred her to endocrinology at [facility] for further evaluation and management, given the degree of her osteoporosis but patient has not heard back from them; will try to refer her to [facility] [place] Endocrinology instead (2) Polymyalgia rheumatica: Code(s): M35.3 - Polymyalgia rheumatica Plan: Patient is advised that her sed rate remains very high on her recent labs, consistent with PMR, and that this is most likely the main reason for her increasing neck and upper back pain which have been bothering her over the past few years We would have ordinarily started her on a much higher dose oral Prednisone for her PMR but in light of her recently diagnosed erosive esophagitis as well as her severe osteoporosis (T-score of -5.0), we just started her on 20 mg QD and will gradually adjust it from there as needed She was also referred to and is now seeing rheumatology for further evaluation and management (3) Erosive esophagitis: Code(s): K22.10 - Ulcer of esophagus without bleeding Plan: Reinforced dietary restrictions Her recent upper GI series revealed findings of esophageal dysmotility and thickened gastric mucosal folds in addition to multiple areas of contrast pooling in the fundus, body, and antrum of the stomach, suggestive of erosive gastritis and recommend correlation with EGD We started her on Omeprazole 20 mg to 2 capsules QD but patient could not tolerate the higher dose and instead has just been taking 20 mg QD Will try switching her to Pantoprazole 40 mg QD; will also continue her for now on Famotidine 20 mg Q HS She was previously referred to and is now scheduled to be seen by GI next month for further evaluation and management - will likely require EGD for further evaluation (4) Pure hypercholesterolemia: Code(s): E78.00 - Pure hypercholesterolemia, unspecified Plan: Results of her labs done a few weeks ago reviewed and discussed with patient but advised that these were apparently non-fasting labs and did not include her lipid profile Reinforced low cholesterol diet Will have her recheck her labs and fasting lipids in 3 months for follow up (5) Lumbar degenerative disc disease: Code(s): M51.36 - Other intervertebral disc degeneration, lumbar region Plan: Reinforced activity and weight-lifting restrictions although patient's activity level is currently very limited so there is not much danger of this happening Have advised her that her recent lumbar spine x-rays done a few months ago revealed mild loss of height of her L5 vertebral body as well as mild retrolisthesis of L4 on L5 but these may also be partly brought about by her severe osteoporosis Plan Follow up in 3 months Orders: Orders Complete Blood Count Auto Diff 3 Months D64.9 - Anemia, unspecified UA CC w/rflx Micro + Cult 3 Months R30.0 - Dysuria Vitamin D 25-OH Total 3 Months E55.9 - Vitamin D deficiency, unspecified Comprehensive [place]. Panel Fast 3 Months E78.00 - Pure hypercholesterolemia, unspecified Lipid Panel 3 Months E78.00 - Pure hypercholesterolemia, unspecified TSH reflex Free T4 3 Months E78.00 - Pure hypercholesterolemia, unspecified Erythrocyte Sedimentation Rate 3 Months M25.50 - Pain in unspecified joint, M35.3 - Polymyalgia rheumatica Referrals Endocrinology Referral M80.00XA - Age-related osteoporosis with current pathological fracture, unspecified site, initial encounter for fracture Medications: New pantoprazole 40 mg PO DAILY 30 days 30 tabs 3RF Changed From famotidine 20 mg PO BEDTIME 14 days 14 tabs 0RF K22.10 - Ulcer of esophagus without bleeding To famotidine 20 mg PO BEDTIME 30 days 30 tabs 1RF K22.10 - Ulcer of esophagus without bleeding Discontinued omeprazole Discontinued Reason: Doctor's Order 40 mg (2 x 20 mg) PO DAILY 90 days 180 caps 1RF Coding Level of Care Code Est Pt Level 4 (23177) Diagnoses Osteoporosis with pathological fracture, initial encounter M80.00XA Encounter type: initial encounter Polymyalgia rheumatica M35.3 Erosive esophagitis K22.10 Pure hypercholesterolemia E78.00 Lumbar degenerative disc disease M51.36
== END 2024-04-15 13:04 | disposition home or self-care (01) ==
PROVIDERS: PCP Internal Medicine; Visit Provider Internal Medicine
DX: M80.00XA Age-related osteoporosis with current pathological fracture, unspecified site, initial encounter for fracture (principal); M35.3 Polymyalgia rheumatica; K22.10 Ulcer of esophagus without bleeding; E78.00 Pure hypercholesterolemia, unspecified; M51.36 Other intervertebral disc degeneration, lumbar region
CPT/HCPCS: 99214